=== PATIENT | female | born 1960 ===

== ENCOUNTER 2024-11-16 05:00 | Outpatient (RCR) | payer BC, SELFPAY | END 2024-12-16 23:55 | disposition home or self-care (01) | LOC: MPT 05:00 | PROVIDERS: Visit Provider Physician Assistant Surgical | DX: M75.41 Impingement syndrome of right shoulder (principal); M25.511 Pain in right shoulder | CPT/HCPCS: 97110; 97162; G0283 ==

== ENCOUNTER 2024-12-17 05:00 | Outpatient (RCR) | payer BC, SELFPAY | END 2024-12-22 12:12 | disposition home or self-care (01) | LOC: MPT 05:00 | PROVIDERS: Visit Provider Physician Assistant Surgical | DX: M75.41 Impingement syndrome of right shoulder (principal); M25.511 Pain in right shoulder | CPT/HCPCS: 97110; G0283 ==